=== PATIENT | male | born 1955 | race African-American/Black ===

== ENCOUNTER 2018-08-31 17:09 | Emergency (ER) | payer OTHER ==
[~2018-08-31] VITALS: Ht 172.7 cm; Wt 63.5 kg
[2018-08-31] MEDS ORDERED: NKM (17:20)
[2018-08-31] MEDS ORDERED: Tetracaine 0.5% Opth 4ml Soln LEFT EYE ONE (17:45)
[2018-08-31] MEDS ORDERED: Morgan Lens TOPIC ONE (17:45)
[2018-08-31 18:49] VITALS: BP 132/84
--- NOTE | 2018-08-31 18:51 | NUR ---
ED Nurse Note:pt. came with chemical spill burn to his right eye at work today, pt. had his eye flashed with NS 1L via morgens lens, poison control was called and we spoke to Kiera owens
--- NOTE | 2018-08-31 21:14 | Emergency Room Report ---
History of Present Illness General Chief Complaint: Chemical Exposure Source: Patient Present Illness HPI 53-year-old male presents to the emergency department complaining of 10 out of 10 in severity pain to the right eye that he describes as burning sensation with redness and increased lacrimation status post having a chemical splashed into his right eye while at work. Patient reports that he initially irrigated his eye for approximately 15 minutes prior to arrival. The patient reports blurry vision out of the affected eye. He denies contact lens use. He states that he is up-to-date with his tetanus vaccination. Allergies: Coded Allergies: No Known Allergies (Unverified , 08/31/18) Patient History Past Medical History: see triage record Past Surgical History: none Pertinent Family History: none Reviewed Nursing Documentation: PMH: Agreed; PSxH: Agreed Nursing Documentation-PMH Past Medical History: No Stated History Review of Systems All Other Systems: negative except mentioned in HPI Physical Exam Vital Signs Date Time Temp Pulse Resp B/P (MAP) Pulse Ox O2 Delivery O2 Flow Rate FiO2 08/31/18 17:18 97.9 75 18 132/84 96 Room Air Sp02 EP Interpretation: reviewed, normal General Appearance: alert, GCS 15, non-toxic, moderate distress Head: normocephalic, atraumatic Eyes: bilateral eye normal inspection, bilateral eye PERRL, bilateral eye EOMI , bilateral eye other - scleral and conjunctival injection, mucus, and erythema of the right eye, no obvious FB's, some swelling of the eye lids. ENT: hearing grossly normal, normal voice Neck: full range of motion Respiratory: lungs clear, normal breath sounds, speaking full sentences Cardiovascular #1: regular rate, rhythm Genitourinary: normal inspection Musculoskeletal: back normal, gait/station normal, normal range of motion Neurologic: alert, oriented x3, responsive, motor strength/tone normal, sensory intact, speech normal, grossly normal Psychiatric: judgement/insight normal Skin: normal color, no rash, warm/dry, well hydrated Medical Decision Making PA Attestation Dr. hutton is my supervising Physician whom patient management has been discussed with. Diagnostic Impression: Primary Impression: Alkaline chemical burn of cornea and conjunctival sac Qualified Codes: T54.3X1A - Toxic effect of corrosive alkalis and alkali-like substances, accidental (unintentional), initial encounter; T26.61XA - Corrosion of cornea and conjunctival sac, right eye, initial encounter ER Course 53-year-old male presents to the emergency department complaining of 10 out of 10 in severity pain to the right eye that he describes as burning sensation with redness and increased lacrimation status post having a chemical splashed into his right eye while at work. Patient reports that he initially irrigated his eye for approximately 15 minutes prior to arrival. The patient reports blurry vision out of the affected eye. He denies contact lens use. He states that he is up-to-date with his tetanus vaccination. Ddx considered but are not limited to: Chemical conjunctivitis, corneal abrasion , acute glaucoma, globe rupture, FB, Corneal Ulcer, Iridis Vital signs: are WNL, pt. is afebrile H&PE are most consistent with: moderate alkaline burn of the right eye with corneal involvement ORDERS: -Tetracaine and Fluorescein Stain Pt. had positive relief of pain with tetracaine drops. there was negative evidence of Fb, deep ulcer, or rupture. ED INTERVENTIONS: -Michael lens irrigation 2L NS -after 1st liter eye pH was 8.7 Consulted with director of sports performance Dr. Villasenor who recommended that patient be transferred to [facility] where there is a corneal specialist due to the nature of the alkaline chemical burn. DISPOSITION: at this time pt. will be admitted to [ ] for [ ]. [ ] agreed to admit the pt. and to continue pt. care management. Last Vital Signs Date Time Temp Pulse Resp B/P (MAP) Pulse Ox O2 Delivery O2 Flow Rate FiO2 08/31/18 18:49 97.9 72 18 132/84 96 Room Air Referrals: NOT CHOSEN IPA/,REFERRING (PCP) Jossie Norman Aug 31, 2018 21:14
--- NOTE | 2018-08-31 21:25 | NUR ---
ED Nurse Note: Clinicals and face sheet faxed to [facility].
[2018-08-31] MEDS ORDERED: Fluorescein Strips RIGHT EYE ONE (21:30)
--- NOTE | 2018-08-31 22:00 | NUR ---
ER Nurse Note: Right eye red and swollan. Eye is continously irrigated. Pt does not have. pH of eye completed; ER PA and ER MD notified and aware. Pt is awaitng AMA forms. Will continue to [facility].
[2018-08-31] MEDS ORDERED: TYLENOL EXTRA500 MG ORAL (22:41)
[2018-08-31] MEDS ORDERED: OCUFLOX5 ML OP (22:41)
[2018-08-31 22:56] VITALS: BP 136/80
--- NOTE | 2018-08-31 22:56 | NUR ---
ER Nurse Note: Pt seen, treated, medically cleared for discharge by ERMD. All orders completed per ERMD orders. Pt signed AMA for a higher continuity of care. Visual acuity completed. Discharge instructions and prescriptions given with repeat verbalization by pt. Instructed pt to follow up with primary care physican within one week. Pt a&ox4, VSS, no signs of distress. ID band removed; left with steady gait via own transportation.
== END 2018-08-31 22:56 | disposition left against medical advice (07) ==
LOC: EMR 18:00
DX: T26.61XA Corrosion of cornea and conjunctival sac, right eye, initial encounter (principal); Y92.9 Unspecified place or not applicable
CPT/HCPCS: 99283